=== PATIENT | male | born 1975 | race Caucasian/White ===

== ENCOUNTER 2017-10-19 08:19 | Emergency (ER) | payer SELFPAY ==
[~2017-10-19] VITALS: Ht 177.8 cm; Wt 81.8 kg
[~2017-10-19 08:19] MED LIST: AMOXICILLIN500 MG PO; BACTRIM DS1 TAB PO; BAYER ASPIRIN325 MG PO; BOOSTRIX IM; NO HOME MEDS; NYQUIL; TAM75CAP OR; THERAFL; TIZANIDINE4 MG PO; ULTRAM50 M1 PO; ZOFRAN ODT4 MG SL
[2017-10-19 09:35] VITALS: BP 129/75
== END 2017-10-19 09:35 | disposition home or self-care (01) | DRG 125 ==
LOC: ED 08:19
DX: T15.01XA Foreign body in cornea, right eye, initial encounter (principal); X58.XXXA Exposure to other specified factors, initial encounter; Y93.89 Activity, other specified; Y92.009 Unspecified place in unspecified non-institutional (private) residence as the place of occurrence of the external cause